=== PATIENT | male | born 2000 | race Caucasian/White ===

== ENCOUNTER 2021-05-31 09:58 | Outpatient (REF) | payer BC, SELFPAY | END 2021-05-31 09:59 | disposition home or self-care (01) | LOC: HO.LNP 09:58 | PROVIDERS: Visit Provider Internal Medicine | DX: K58.2 Mixed irritable bowel syndrome (principal); R19.8 Other specified symptoms and signs involving the digestive system and abdomen | CPT/HCPCS: 87177; 87209; 87329 ==

== ENCOUNTER 2021-08-15 15:35 | Outpatient (REF) | payer BC, SELFPAY ==
[2021-08-15 15:50] LABS: MANUAL DIFF FLAG NO
[2021-08-15 16:08] LABS: Basophils Percent Auto 0.3 % (0-2); Eosinophils Absolute Auto 0.1 X10*3/uL (0.0-0.4); Eosinophils Percent Auto 0.9 % (0-4); Hemoglobin 15.2 g/dl (14.0-18.0); Imm Gran Abs Auto 0.02 X10*3/uL (0.00-0.03); Imm Gran Pct Auto 0.3 % (0.0-0.4); Lymphocytes Absolute Auto 1.8 X10*3/uL (1.2-4.9); Lymphocytes Percent Auto 22.9 % (20-40); Mean Corpuscular HGB Conc 33.8 g/dl (31.0-36.0); Mean Corpuscular Hemoglobin 28.1 pg (27.0-33.0); Mean Corpuscular Volume 83.3 fL (80-98); Mean Platelet Volume 9.9 fL (9.4-12.4); Monocytes Absolute Auto 0.3 X10*3/uL (0.1-1.2); Monocytes Percent Auto 4.2 % (2-11); Neutrophils Absolute Auto 5.5 X10*3/uL (2.0-8.3); Neutrophils Percent Auto 71.4 % (45-73); Platelet Count 252 X10*3/uL (160-400); Red Cell Distribution Width 12.5 % (11.0-16.0); White Blood Count 7.7 X10*3/uL (4.8-10.8)
[2021-08-15 16:49] LABS: TSH reflex Free T4 1.04 uIU/mL (0.32-4.0)
[2021-08-17 04:52] LABS: Immunoglobulin A 55 mg/dL (47-310)
[2021-08-18 16:26] LABS: Gliadin Deamidated IgA Ab <1.0 U/mL; Gliadin Deamidated IgG Ab <1.0 U/mL
[2021-08-18 16:37] LABS: Transglutaminase Ab IgG <1.0 U/mL; Transglutaminase IgA <1.0 U/mL
[2021-08-21 11:02] LABS: Endomysial IgA Antibody Negative (Negative)
== END 2021-08-15 15:36 | disposition home or self-care (01) ==
LOC: HO.LAB 15:35
PROVIDERS: PCP Nurse Practitioner Family; Visit Provider Internal Medicine
DX: K58.2 Mixed irritable bowel syndrome (principal); R19.8 Other specified symptoms and signs involving the digestive system and abdomen; R14.3 Flatulence
CPT/HCPCS: 36415; 82784; 83516; 84443; 85025; 86255; 86256